=== PATIENT | male | born 1985 | race African-American/Black ===

== ENCOUNTER 2021-03-09 12:44 | Emergency (ER) | payer OTHER, SELFPAY ==
[2021-03-09 12:45] VITALS: BP 170/90; PULSE 104; RESP 16; TEMP 36.3; O2SAT 99; BMI 34.1
[2021-03-09 12:51] VITALS: O2SAT 99
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
--- NOTE | 2021-03-09 15:27 | ED.RN ---
THIS RN ASSISTED PT IN FILLING OUT [facility]. PT GIVEN WRITTEN AND VERBAL DISCHARGE INSTRUCTIONS, EDUCATED ON INSTRUCTIONS AND HOME GOING PRESCRIPTIONS. PT EDUCATED ON MEDICATION SIDE EFFECTS, AND NOT TO TAKE CYCLOBENZAPRINE WHEN DRIVING. PT VERBALIZES UNDERSTANDING AND DENIES ANY FURTHER QUESTIONS. REQUESTS A SANDWICH AND DRINK TO TAKE HOME, WHICH WAS PROVIDED TO HIM BY THIS RN. PT IV D/C AND COVERED WITH 2X2 GAUZE AND PAPER TAPE. PT REPORTS HE IS TAKING AN UBER HOME.
[2021-03-09 15:30] VITALS: BP 154/111; PULSE 75; RESP 16; O2SAT 98
== END 2021-03-09 15:40 | disposition home or self-care (01) ==
PROVIDERS: Emergency Provider Emergency Medicine
DX: S16.1XXA Strain of muscle, fascia and tendon at neck level, initial encounter (principal); S39.012A Strain of muscle, fascia and tendon of lower back, initial encounter; S09.90XA Unspecified injury of head, initial encounter; V63.5XXA Driver of heavy transport vehicle injured in collision with car, pick-up truck or van in traffic accident, initial encounter; Y93.9 Activity, unspecified; Y92.9 Unspecified place or not applicable
CPT/HCPCS: 70450; 72100; 72125; 99284